=== PATIENT | male | born 1990 | race Caucasian/White ===

== ENCOUNTER 2019-09-16 09:13 | Emergency (ER) | payer OTHER ==
[~2019-09-16] VITALS: Ht 162.6 cm; Wt 76.2 kg
[2019-09-16 09:23] VITALS: BP 138/81
[2019-09-16 09:39] LABS: INFLUENZA A ANTIGEN Negative (Negative)
[2019-09-16] MEDS ORDERED: TAMIFLU75 MG PO (09:47)
== END 2019-09-16 09:53 | disposition home or self-care (01) ==
LOC: M.ERS 09:13
PROVIDERS: Emergency Medicine
DX: J11.1 Influenza due to unidentified influenza virus with other respiratory manifestations (principal)